=== PATIENT | male | born 2000 | race Caucasian/White ===

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

== ENCOUNTER 2021-02-03 23:05 | Emergency (ER) | payer SELFPAY ==
[~2021-02-03] VITALS: Ht 177.8 cm; Wt 98.4 kg
[2021-02-03 23:16] VITALS: Ht 177.8 cm; Wt 98.4 kg
[2021-02-04 01:48] VITALS: BP 147/78
== END 2021-02-04 01:48 | disposition home or self-care (01) ==
LOC: ED 23:05
DX: R00.2 Palpitations (principal); T40.7X5A Adverse effect of cannabis (derivatives), initial encounter; F17.210 Nicotine dependence, cigarettes, uncomplicated; Y92.89 Other specified places as the place of occurrence of the external cause